=== PATIENT | male | born 1970 | race Hispanic/Latino ===

== ENCOUNTER 2017-09-16 01:34 | Emergency (ER) | payer MEDICAID ==
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
[2017-09-16] MEDS ORDERED: DiphenhydrAMINE 50 mg/ml Inj IM STA (02:29)
--- NOTE | 2017-09-16 07:22 | ED PDOC ---
- ECG O2 Sat by Pulse Oximetry: 100 (RA) Pulse Ox Interpretation: Normal Medical Decision Making Medical Decision Makin:00 Patient signed out to me by DAVE Mann, pending clinical sobriety 07:30 Patient signed out by me to Dr. Lea Scribe Attestation: Documented by Tram Garibay, acting as a scribe for Amberly Velásquez MD Provider Scribe Attestation: All medical record entries made by the Scribe were at my direction and personally dictated by me. I have reviewed the chart and agree that the record accurately reflects my personal performance of the history, physical exam, medical decision making, and the department course for this patient. I have also personally directed, reviewed, and agree with the discharge instructions and disposition. Disposition - Clinical Impression Clinical Impression: Alcohol abuse with intoxication, Nasal fracture - POA Present On Arrival: None - Disposition Referrals: Yogesh Phillips MD [Staff Provider] - Disposition: Transfer of Care Disposition Time: 07:30 Condition: STABLE Additional Instructions: FOLLOW-UP WITH PMD WITHIN 2 DAYS FOR REEVALUATION. Prescriptions: Amoxicillin/Clavulanate [Augmentin 875 MG-125 MG] 1 tab PO BID #14 tab Instructions: Nasal Fracture (ED), Alcohol Intoxication (ED) Forms: [employer] (Greek) Patient Signed Over To: Urmila Lea
--- NOTE | 2017-09-16 08:09 | ED PDOC ---
- ECG O2 Sat by Pulse Oximetry: 100 (RA) Pulse Ox Interpretation: Normal Medical Decision Making Medical Decision Makin:30 Patient signed over to me by Dr. Gaming, pending clinical sobriety 09:30 Pt AAOX3, steady gait, states he will take Uber home to [place]. Scribe Attestation: Documented by Tram Garibay, acting as a scribe for Urmila Lea MD Provider Scribe Attestation: All medical record entries made by the Scribe were at my direction and personally dictated by me. I have reviewed the chart and agree that the record accurately reflects my personal performance of the history, physical exam, medical decision making, and the department course for this patient. I have also personally directed, reviewed, and agree with the discharge instructions and disposition. Disposition - Clinical Impression Clinical Impression: Alcohol abuse with intoxication, Nasal fracture - POA Present On Arrival: Falls Or Trauma - Disposition Referrals: Yogesh Phillips MD [Staff Provider] - Disposition: Routine/Home Disposition Time: 09:30 Condition: STABLE Additional Instructions: FOLLOW-UP WITH PMD WITHIN 2 DAYS FOR REEVALUATION. Prescriptions: Amoxicillin/Clavulanate [Augmentin 875 MG-125 MG] 1 tab PO BID #14 tab Instructions: Nasal Fracture (ED), Alcohol Intoxication (ED) Forms: [employer] (Romanian)
--- NOTE | 2017-09-16 09:03 | CT ---
PROCEDURE: CT HEAD WITHOUT CONTRAST. HISTORY: head injury etoh COMPARISON: None available. TECHNIQUE: Axial computed tomography images were obtained through the head/brain without intravenous contrast. Radiation dose: Total exam DLP = 1337.75 mGy-cm. This CT exam was performed using one or more of the following dose reduction techniques: Automated exposure control, adjustment of the mA and/or kV according to patient size, and/or use of iterative reconstruction technique. FINDINGS: HEMORRHAGE: No intracranial hemorrhage. BRAIN: No mass effect or edema. Intracranial atherosclerosis. The fox-white matter differentiation appears intact. Please note that MRI with diffusion imaging is more sensitive in the detection of acute ischemic event. VENTRICLES: No hydrocephalus. CALVARIUM: Unremarkable. PARANASAL SINUSES: Unremarkable as visualized. No significant inflammatory changes. MASTOID AIR CELLS: Unremarkable as visualized. No inflammatory changes. OTHER FINDINGS: Mildly displaced bilateral nasal bone fracture deformities. IMPRESSION: Mildly displaced bilateral nasal bone fracture deformities. No acute intracranial pathology identified. Preliminary impression was provided by virtual radiologic.
[2017-09-16 09:34] VITALS: BP 130/76; PULSE 72; RESP 18; TEMP 98
[2017-09-17 01:58] VITALS: O2SAT 100
== END 2017-09-16 09:34 | disposition home or self-care (01) ==
LOC: H.ER 01:34
DX: F10.129 Alcohol abuse with intoxication, unspecified (principal); S02.2XXA Fracture of nasal bones, initial encounter for closed fracture; Y04.0XXA Assault by unarmed brawl or fight, initial encounter; Y92.89 Other specified places as the place of occurrence of the external cause
CPT/HCPCS: 70450; 80320; 82948; 96372; 99284; J1200; J1630; J2060